=== PATIENT | female | born 1950 | race Caucasian/White ===

== ENCOUNTER 2024-05-05 11:13 | Inpatient (IN) | payer MEDICARE, OTHER, SELFPAY ==
[2024-05-05] VITALS (20 sets, daily range): BP systolic 93–144; BP diastolic 43–97; BMI 21.7
[2024-05-05] MEDS: LOW STRENGTH ASPIRIN 324 MG PO (07:10)
[2024-05-05] MEDS: NITROSTAT (SUBLINGUAL) 0.4 MG SL (07:13)
[2024-05-05 07:14] LABS: % Basophils 0.9 % (0-2); % Eosinophils 1.7 % (0-6); % Immature Granulocytes 0.2 % (0-0.5); % Lymphocytes 28.1 % (20.5-51.1); % Neutrophils 62.1 % (42.2-75.2); Absolute Basophils 0.1 10^3/uL (0-0.2); Absolute Eosinophils 0.1 10^3/uL (0-0.7); Absolute Lymphocytes 1.5 10^3/uL (1.2-3.4); Absolute Monocytes 0.4 10^3/uL (0.1-0.6); Absolute Neutrophils 3.4 10^3/uL (1.4-6.5); Hematocrit 40.1 % (37.0-47.0); Hemoglobin 13.8 g/dL (12.0-16.0); Mean Corp Hgb Conc. 34.4 g/dL (33.0-37.0); Mean Corpuscular Hgb 30.3 pg (27.0-31.0); Mean Corpuscular Volume 88.1 fL (81.0-99.0); Mean Platelet Volume 9.8 fL (7.4-10.4); Nucleated Red Blood Cells % 0 %; Platelet Count 185 10^3/uL (130-400); Red Blood Cell Count 4.55 10^6/uL (4.20-5.40); Red Cell Dist. Width 12.4 % (11.5-14.5); White Blood Cell Count 5.4 10^3/uL (4.8-10.8)
[2024-05-05 07:20] LABS: D-Dimer 2.29 ug/mlFEU (0.00-0.50)
--- NOTE | 2024-05-05 07:23 | ED.GENMED ---
History of Present Illness
General
Chief Complaint: Breathing Problem
Source: patient
Exam Limitations: none
Time Seen by Provider: 05/05/24 06:23
Nursing documentation reviewed up to this point in time: agreed with
History of Present Illness
History of Present Illness:
Patient presents to ED secondary to increasing shortness of breath with dry heaving, shortly after waking up this morning. Patient has had intermittent cough over the past 3 weeks. Patient was evaluated by her primary care physician on Monday and
was prescribed albuterol inhaler to be used as needed. Denies nausea, vomiting, or diarrhea. Denies fever or chills. Denies back pain. Denies leg pain or swelling. Denies recent surgery. Denies sick contact. Denies previous history of similar
symptoms. Denies smoking. Denies family history of heart disease.
Past History
Past History
ED Past Medical History: None
ED Past Surgical History: None
Social History
Tobacco: Non-smoker
Alcohol: Occasional
Drug: None
Personal: Partner
Living: with family
Review of Systems
Review of Systems
Allergies reviewed?: Yes
All Other Systems: ROS reviewed and negative except as documented in HPI and ROS
Constitutional: Reports no symptoms
EENT: Reports no symptoms
Respiratory: Reports cough and trouble breathing
Cardiac: Reports chest pain
ABD/GI: Reports nausea; Denies abdominal pain
: Reports no symptoms
Musculoskeletal: Reports no symptoms; Denies edema
Skin: Reports no symptoms
Neurological: Reports no symptoms
Phy Exam
Physical Exam
Physical Exam:
Physical Exam
General: mild distress, not acutely ill. afebrile
Head: nc/at. eomi
Neck: supple. no meningeal signs.
Heart: s1/s2 regular rate and rhythm, no murmur. equal radial pulses.
Lungs: no acute respiratory distress. clear bilaterally
Abdomen: normal bowel sounds. not tender.
Neuro: alert and oriented. no focal neurological deficits
Skin: no rash
Psychiatric: well kept. interactive and cooperative
Extremities: no edema. no calf tenderness.
Scores
Heart Failure Risk
Heart Failure Risk Score: Not Applicable
Course
Orders/Labs/Results
Orders:
Orders
05/05/24 06:36
Electrocardiogram (*1) Urgent
Reason for Study: Shortness of Breath
EKG- Treatment ONCE
CR Chest - 2 Views Urgent
Comment:
Reason For Exam: cough/sob
05/05/24 06:59
Complete Blood Count/With Diff Urgent
Comprehensive Metabolic Panel Urgent
D-Dimer Urgent
Magnesium Urgent
NT-proBNP Urgent
Phosphorus Urgent
Comment: ADD ON
Troponin I Urgent
05/05/24 07:04
Electrocardiogram (*1) Urgent
Reason for Study: Shortness of Breath
EKG- Treatment ONCE
Aspirin Chewable [Low Strength Aspirin] 324 mg PO NOW STA
Nitroglycerin Sublingual [Nitrostat (Sublingual)] 0.4 mg .ROUTE .STK-MED ONE
Nitroglycerin Sublingual [Nitrostat (Sublingual)] 0.4 mg SL NOW STA
05/05/24 07:37
CT Chest Pe Study Urgent
Comment:
Reason For Exam: chest tightness/sob w elevated d-dimer
05/05/24 09:25
Heparin 5,000 units .ROUTE .STK-MED ONE
05/05/24 09:27
Heparin 4,000 units IV NOW STA
05/05/24 09:57
Fentanyl Citrate/Pf [Sublimaze] 100 mcg .ROUTE .STK-MED ONE
Heparin 10,000 units .ROUTE .STK-MED ONE
Midazolam HCl [Versed] 2 mg .ROUTE .STK-MED ONE
05/05/24 09:59
Heparin 1000 Units/500 ml [Heparin] 1,000 units in 500 ml .ROUTE .STK-MED
Verapamil Injectable [Isoptin/Verapamil Injection] 5 mg .ROUTE .STK-MED ONE
05/05/24 Lunch
Cholesterol Lowering
At Your Request: Full Participation
Does patient need a safe tray?: No
Cholesterol Lowering: Sodium, 2 Gram
Heparin Sodium,Porcine/Ns/Pf [Heparin 2000 Units/1000 ml] 2,000 unit in 1,000 ml .ROUTE .STK-MED
Lidocaine HCl/Pf [Xylocaine-Mpf 1% Vial] 200 mg .ROUTE .STK-MED ONE
Nitroglycerin [Tridil] 1,500 mcg .ROUTE .STK-MED ONE
05/05/24 10:46
Admit Patient As Directed
Co-Sign Provider:
Level of Care: Inpatient admission
Assign to:: IVU
Physician / Group: Hospitalist
Diagnosis: New non-ischemic cardiomyopathy, HFrEF
Patient Condition: Fair
Reason for Hospitalization: New non-ischemic cardiomyopathy, HFrEF
Expected length of stay greater than two midnights?: Yes
ELOS- Estimated Length of Stay in days: 2
I certify the patient meets the requirements for IP care: Yes
Reason for Overnight Stay: Standard of Care
Code Status As Directed
Resuscitation Status: Full Code
Acetaminophen [Tylenol] 650 mg PO Q4HPRN PRN
Fentanyl Citrate/Pf [Sublimaze] 50 mcg IV [id number] PRN
Midazolam HCl [Versed] 1 mg IV Q5MPRN PRN
Nitroglycerin Sublingual [Nitrostat (Sublingual)] 0.4 mg SL [id number] PRN
Oxycodone/Acetaminophen [Percocet 5/325] 1 tablet PO Q4HPRN PRN
Activity As Directed
Activity Level: Out of Bed- Ad Jacki
Activity Frequency: Ad Jacki
[facility] Procedure As Directed
Cardiac Cath Procedure: cardiac catheterization
Notify MD As Directed
Notify physician if: immediately for chest pain or bleeding from access site(s)
Radial Artery Hemostasis Method As Directed
Instructions:: 3 mL out at 1 hour post placement of band
3 mL out at 1 1/2 hours post placement of band
3 mL out at 2 hours post placement of band
Off at 2 1/2 hours post placement of band
If any oozing or hemotoma occurs:: re-inflate band and call provider
Site Checks As Directed
Check access site for bleeding/hematoma: Yes
Comment: on arrival, Q15min x4, Q30min x2, Q1 hr x2, Q2 hr x2, Q4 hr or per
protocol
Vascular Checks As Directed
Location: distal to access site - pulse check
Frequency: Other
Comment: on arrival, Q15min x4, Q30min x2, Q1 hr x2, Q2 hr x2, Q4 hr or per protocol
Venous Foot Pumps As Directed
Location: Bilateral feet
Vital Signs As Directed
Frequency: Other
Additional Instructions:: on arrival, Q15min x4, Q30min x2, Q1 hr x2, Q2 hr x2, then Q4 hr or per unit
protocol
PRN Pain Medication Management As Directed
May give lesser potent ordered pain med per pt: Yes
preference::
Protocol:: Medication orders for pain may be administered in a
manner that supports deferring to patient preference
when the pt is:
- Requesting an ordered lesser potent pain medication.
Least to most potent pain medications are defined
as: acetaminophen < NSAID < tramadol < opioids
(morphine, oxycodone, hydromorphone).
- Requesting a lesser dose of the same medication IF
ORDERED.
- Requesting a less intrusive route of administration
if both routes are prescribed by the provider (PO <
IV).
05/05/24 10:47
DX Deep Vein Thrombosis Video Routine
05/05/24 10:48
Furosemide [Lasix] 40 mg IV ONCE ONE
05/05/24 11:00
0.9% Sodium Chloride 1000 ml [Nss] 1,000 ml IV PER PROTOCOL
Infusion rate in mL/kg/hr:: 1.5
Infusion rate in mL/hr:: 93
Duration of infusion (hours):: 3
Metoprolol Xl [Toprol Xl] 12.5 mg PO DAILY
05/05/24 11:07
Add On- LAB Routine
Tests Added?: Phosphorus
05/05/24 18:00
Atorvastatin [Lipitor] 40 mg PO QPM
Enoxaparin Sodium [Lovenox] 40 mg SC QPM
05/05/24 20:00
Sacubitril 24/Valsartan 26 [Entresto 24 mg/26 mg] 1 tab PO BID
05/06/24 06:00
Echo 2D MMode Color/Doppler Routine
Reason for Study: New non-ischemic cardiomyopathy.
Basic Metabolic Panel IN AM
Cardiovascular Evaluation IN AM
Complete Blood Count/No Diff IN AM
05/06/24 08:00
Dapagliflozin [Farxiga] 10 mg PO DAILY
Abnormal Lab Results
05/05/24
06:59
D-Dimer 2.29 H ug/mlFEU
(0.00-0.50)
BUN 26 H mg/dl
(7-17)
Glucose 101 H mg/dl
(70-99)
AST 46 H U/L
(14-36)
ALT 40 H U/L
(0-35)
Alkaline Phosphatase 135 H U/L
(38-126)
Troponin I 0.035 H* ng/ml
05/05/24 06:59
05/05/24 06:59
Vital Signs
Initial and Last Documented VS:
Initial Vital Signs
Temp Pulse BP Pulse Ox
97.7 F 86 144/70 100
05/05/24 06:28 05/05/24 06:28 05/05/24 06:28 05/05/24 06:28
Last Documented Vital Signs
Temp Pulse Resp BP Pulse Ox
97.7 F 66 20 143/72 98
05/05/24 11:51 05/05/24 11:45 05/05/24 11:51 05/05/24 11:45 05/05/24 11:51
MDM/Problems Addressed
MDM/Problems Addressed:
Due to recent travel and elevated d-dimer, decision made to obtain CTA PE study.
CTA chest: no PE, but possible kidney mass noted. Will inform patient for outpatient evaluation with PMD, as outpatient. A copy of report provided to the patient and her spouse.
Discussed with [facility] attending, Dr. Keys, in light of patient's presentation along with new left bundle branch block noted on EKG.
Patient evaluated in ED by Dr. Keys. Decision made to proceed to [facility] for diagnostic catheterization. Request heparin bolus only.
Patient transported to [facility] in stable condition.
Critical care statement: A total of 40 minutes of critical care time was provided for this patient. This includes management of unstable vital signs, evaluation of the patient at bedside, reviewing the patient's pertinent medical records, discussion
with consultants, review of old EKGs and review of pertinent medical records. This time with separate from time utilized to perform the aforementioned documented procedures
*EKG
Interpreted by ED Provider?: Yes
EKG Intrepretation Date: 05/05/24
Heart Rate: 78
Rate: normal
Rhythm: sinus
QRS Pattern: left bundle branch block
*Critical Care Note
Total Time (30-74mins, 75-104mins- exclusive of procedures): 40 min
ED Attending Note
-
Portions of this chart may have been created with voice recognition software.� Occasional wrong word or��sound alike� substitutions may have occurred due to the inherent limitations of voice recognition software.
Discharge Plan
Departure
Patient Disposition: [facility]
Date of Disposition: 05/05/24
Time of Disposition: 09:29
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
Presentation/result/management discussed w/ accepting MD/DO:
Discharge Problem:
Chest pain, Abnormal ECG
Interventions
Interventions:
*Risk Screen - Suicide Last Done: 05/05/24 06:20
*Neglect/Abuse Screening Last Done: 05/05/24 06:20
ED- Fall Risk Assessment Last Done: 05/05/24 07:02
*ED COVID-19 Vaccine History Last Done: 05/05/24 07:02
*Nursing Disposition Last Done: 05/05/24 10:15
ED- Cardiac Assessment Last Done: 05/05/24 07:18
ED- Pulmonary Assessment Last Done: 05/05/24 07:18
Discharge Date and Time
Discharge Date/Time: 05/05/24 10:16
[2024-05-05 07:35] LABS: NT-proBNP 2340 pg/ml; Troponin I 0.035 ng/ml
[2024-05-05 07:44] LABS: ALT (SGPT) 40 U/L (0-35); AST (SGOT) 46 U/L (14-36); Albumin 4.4 g/dl (3.5-5.0); Alkaline Phosphatase 135 U/L (38-126); Blood Urea Nitrogen 26 mg/dl (7-17); Calcium 9.9 mg/dl (8.4-10.2); Carbon Dioxide 29 mmol/L (22-30); Chloride 103 mmol/L (98-107); Estimated Creatinine Clearance 69 ml/min; Glucose 101 mg/dl (70-99); Potassium 4.3 mmol/L (3.5-5.1); Sodium 141 mmol/L (135-145); Total Bilirubin 0.5 mg/dl (0.2-1.3); Total Protein 7.5 g/dl (6.3-8.2); eGFR > 60.00
[2024-05-05] MEDS: HEPARIN 4000 UNITS IV (09:30)
--- NOTE | 2024-05-05 09:51 | HPS.HSE ---
Addendum entered and electronically signed by Charly Keys DO 05/05/24 11:09:
Cardiac catheterization shows no occlusive coronary artery disease (mild tapering of the left main, 30% proximal LAD), moderately reduced systolic function (LVEF = 35-40%) and moderately elevated filling pressures (LVEDP = 20 mmHg).
Furosemide 40 mg IV x 1 ordered.
Start guideline directed medical therapy with metoprolol, sacubitril/valsartan and dapagliflozin.
Echocardiogram ordered and pending.
Check fasting lipid profile, hemoglobin A1c.
Start atorvastatin 40 mg given presence of coronary atherosclerosis, though currently nonocclusive.
CT abdomen/pelvis ordered to evaluate kidney abnormality seen on CT PE.
Original Note:
Family Physician
-
Family Physician: Evelyn Brandt
Chief Complaint
-
Shortness in breath, chest pressure.
History of Present Illness
74 y/o female without significant past medical history presents to [facility] ER with shortness in breath and chest pressure. Symptoms began approximately 3 weeks ago after returning from a 3 week vacation. She describes increased work of
breathing with exertion (climbing stairs/attic ladder) and increased fatigue. She also describes shortness in breath awakening her from sleep, relieved by sitting up, consistent with PND. This has been associated with chest pressure. She reports
post nasal drip and felt that her symptoms were likely due to sinus infection as she has had this in the past. She saw her PCP who prescribed an albuterol inhaler, which has not been effective. She had an episode of PND this morning around 3AM,
compounded by chest pressure, nausea and dry heaving. She felt 'shaky' afterwards, prompting her presentation to the ER.
In the ER, EKG shows a LBBB. Prior EKG from 02/08/2023 is normal. She denies fevers, chills, palpitations. She admits that she felt presyncopal after her episode of dry heaves earlier this morning. She is afebrile and vital signs have been
stable. CXR showed mild pulmonary edema. D-Dimer was elevated at 2.29, prompting a CTPE, which was negative for PE, but does show small bilateral pleural effusions, mild dilation of the ascending aorta, mild emphysema and a lobular configuration
of the left kidney not fully defined, concerning for tumor. Troponin is mildly elevated at 0.035 and she has a mild transaminitis.
Given the non-specific findings, chest pressure and new LBBB on EKG, cardiology was consulted for further evaluation.
DATA:
CTPE, 05/05/2024:
IMPRESSION:
1). Imaging obtained into the upper abdomen demonstrates lobular configuration to the lateral aspect of the interpolar portion of the left kidney. While this may be a renal dromedary hump is worrisome for 4 cm left renal tumor and follow-up imaging
with CT of the abdomen would be useful for further evaluation.
2). There is no pulmonary embolism
3). 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
4). Small bilateral pleural effusions
5). Mild emphysema
Medical History
Past Medical History
Past Medical History: Reports None
Past Surgical History: Reports None
Social History
Tobacco: Non-smoker
Alcohol: Daily (4-5 drinks per week (wine with dinner).)
Drug: None
Personal: (, recently remarried (within the past year).)
Living: With Family
Family History
Family History: Not pertinent
Allergies / Home Medications
Allergies reflects when Allergies were last updated in [facility].
Home Medications with original date entered in [facility]
Allergy/Medication List:
Home Medications:
No home medications.
Allergies:
Prednisone
Review of Systems
-
History Source: Patient and Family
A 12 point ROS was completed and negative except as noted: Yes
Constitutional: Reports See HPI
EENT: Reports See HPI (Post nasal drip.)
Respiratory: Reports Cough and Trouble Breathing
Cardiac: Reports Chest Pain (Chest pressure.)
Abdomen/GI: Reports Nausea and Vomiting (Dry heaves.)
: Reports No Symptoms
Musculoskeletal: Reports No Symptoms
Skin: Reports No Symptoms
Neurological: Reports No Symptoms
Endocrine: Reports No Symptoms
Hematologic/Lymphatic: Reports No Symptoms
Psych: Reports No Symptoms
Physical Exam
Vital Signs
Vital Signs
Temp Pulse Resp BP Pulse Ox
36.5 C 75 12 127/54 97
05/05/24 06:28 05/05/24 09:00 05/05/24 09:00 05/05/24 09:00 05/05/24 09:00
Physical Exam
General: Well Developed, Well Nourished, No Apparent Distress, Comfortable, Conversant and Good Appetite
HEENT: NormoCephalic, Anicteric, Moist mucous membranes, Atraumatic, Good Dentition, PERRLA, [place] Conjunctivae, No Ptosis, Nose Appears Normal, Ears Appear Normal and Neck Nontender
Respiratory: Clear and Non Labored Respirations
Cardiac: S1/S2, Regular Rhythm and Gallop (Paradoxically split S2.)
Breast: Deferred by me
GI: Soft, Non Tender, Non Distended and Normal Bowel Sounds
Rectal: Deferred by Provider
Genito-urinary: Deferred by me
Musculoskeletal: No Clubbing, No Cyanosis and No Edema
Skin: Warm and Dry
Neuro: AO x 3, No Motor Deficits and Nonfocal/grossly intact
Hematologic/Lymphatic: No Lymphadenopathy
Psych: Calm and Intact Judgment/Insight
Laboratory Results
-
05/05/24 06:59
05/05/24 06:59
Laboratory Results
Total Bilirubin 0.5 mg/dl (0.2-1.3) 05/05/24 06:59
AST 46 U/L (14-36) H 05/05/24 06:59
ALT 40 U/L (0-35) H 05/05/24 06:59
Alkaline Phosphatase 135 U/L (38-126) H 05/05/24 06:59
Troponin I 0.035 ng/ml H* 05/05/24 06:59
Data Reviewed
-
Diagnostic Radiology: Image Personally Visualized and interpreted, Report Reviewed by me and Discussed with Physician
CT Scan: Image Personally Visualized and interpreted, Report Reviewed by me and Discussed with Physician
Medical Tests (Nuc Med, Echo, EKG etc): Image Personally Visualized and interpreted, Report Reviewed by me, Discussed with Physician, Discussed with Patient and Discussed with Family
Lab Data: Labs Reviewed by me, Discussed with Physician, Discussed with Patient and Discussed with Family
Old Records: Reviewed
Impression/Plan
-
Impression/Plan: 74 y/o female without significant past medical history presenting with 3 weeks of post nasal drip, progressive CRUZ and fatigue, paroxysmal nocturnal dyspnea associated with chest pressure and a new LBBB with a mildly elevated
troponin.
#CRUZ/PND/LBBB/abnormal troponin
-Relatively acute.
-The presence of LBBB makes it difficult to determine if the patient meets absolute STEMI criteria.
-She is currently chest pain free.
-Given her symptom progression with the episode this morning, pulmonary edema on CXR and LBBB on EKG, it is reasonable to pursue a cardiac catheterization today to clarify coronary anatomy and filling pressures.
-DDx includes ACS, Takotsubo, NICMO/post viral myocarditis.
-The procedure was explained in detail to the patient and her .
-ASA 324 mg and Heparin 4000 units was given in the ER.
-Ticagrelor held until we have defined her anatomy.
-Fasting lipid panel in the AM.
-Check HbA1c.
-Trend troponin to peak.
-Consent signed and on the chart.
-Further instructions will follow.
#Left renal abnormality
-New diagnosis.
-Concern for left sided renal malignancy, though imaging could not be certain.
-CT abdomen pelvis after her cardiac catheterization.
--- NOTE | 2024-05-05 10:56 | ITS.CL.CATH ---
[facility] - Catheterization
Cardiac Catheterization
Procedure Report:
CARDIAC CATHETERIZATION REPORT
Date of Procedure: 05/05/2024
Referring: Rodney Vega M.D./Cliff Best M.D.
INDICATION: New left bundle branch block, new symptoms of heart failure.
PROCEDURE:
1. Left heart catheterization.
2. Coronary angiography.
3. Left ventriculography.
ACCESS:
6 Haitian right radial artery.
CATHETERS:
1. 5 Haitian JR4.
2. 5 Haitian JL 3.5.
3. 5 Haitian angled pigtail.
HEMODYNAMIC DATA
Weight (kg): 62.0
AO (s/d/x, mmHg): 119/58/76
LV (s/x mmHg): 121/20
LEFT VENTRICULOGRAPHY: Performed in an WIGGINS projection. Moderately dilated left ventricle. There is akinesis of the mid to distal inferior wall. There is global hypokinesis in the remainder of the myocardium with moderately reduced systolic
function. Left ventricular ejection fraction estimated at 35-40%. There is mild mitral regurgitation. There is no aortic valve insufficiency. The aortic root appears normal with at least mild dilation of the visualized ascending aorta.
CORONARY ANGIOGRAPHY
Dominance: Right.
Left Main: Normal size, bifurcating vessel. There is proximal vessel tapering without pressure dampening and adequate splash back.
LAD: Normal size vessel giving rise to 1 significant diagonal. There is a 30% lesion in the proximal vessel.
Ramus: Congenitally absent.
Circumflex: Normal size, nondominant vessel that is essentially a single obtuse marginal supplying the lateral wall. There is no coronary artery disease.
RCA: Enormous, dominant vessel with a large posterolateral arcade that supplies the entire inferior and inferior lateral wall. There is no coronary artery disease.
INTERVENTION(S)
None.
Closure Device: Vascular band.
Radiation (mGy): 349.29
DAP (cm2.Gy): 23.8115
Fluoroscopy time (minutes): 5.2
Sedation time (minutes): 22
CONCLUSIONS
1. Right dominant circulation with mild proximal left main narrowing and a 30% lesion in the proximal LAD.
2. Akinesis of the mid to distal inferior wall with global hypokinesis throughout the remainder of the left ventricle with moderately reduced systolic function, LVEF estimated at 35-40%.
3. Moderately elevated filling pressures (LVEDP = 20 mmHg at 62.0 kg).
4. Tortuous right radial/brachial arteries requiring a hydrophilic wire for catheter advancement.
RECOMMENDATIONS:
1. Expectant management after cardiac catheterization via right radial approach.
2. Limited weight bearing on the right wrist for one week.
3. Furosemide 40 mg IV x 1.
4. Initiation of guideline directed medical therapy as hemodynamics will tolerate.
5. Primary prevention with high-dose, high potency statin.
6. Echocardiogram to more fully evaluate myocardial structure and function as well as valve function.
7. Referral to cardiac rehab.
Copy to: Rodney Vega M.D., Evelyn Brandt D.O.
Charly Keys DO, FACC, FACP
[2024-05-05 11:39] LABS: Phosphorus 3.9 mg/dl (2.5-4.5)
--- NOTE | 2024-05-05 11:52 | HPS.HSE ---
Family Physician
-
Family Physician: Evelyn Brandt
Chief Complaint
-
chest pain
History of Present Illness
74-year-old female with no significant past medical history is presenting from home with complaints of chest pressure and pain. Patient recently traveled to [place] and returned 2 weeks ago. Patient under increasing amount of stress due to social
situation. Did state her symptomology correlates with the timing of stress. Had intermittent cough which has resolved at this point. No fevers or chills. No lightheaded dizziness. Currently without chest pain or palpitations. Complained of
shortness of breath which did wake her up from sleep which was relieved by sitting up. Denies any lower extremity edema. States usually her blood pressure runs on the lower side. Currently seen after cardiac catheterization and without any
specific complaints. In the ER patient was found to have elevated D-dimer underwent CT PE which was found to be negative. CT chest did show abnormality on the renal lesion. EKG was abnormal which showed a left bundle branch block and patient
underwent cardiac catheterization by Dr. Keys. Cardiac catheterization with nonobstructive CAD. Ejection fraction of 35%.
Medical History
Past Medical History
Past Medical History: Reports Other
Past Surgical History: Reports Other
Social History
Alcohol: Daily (glass of wine with dinner )
Drug: None
Personal: (recently )
Living: With Family
Family History
Family History: Not pertinent
Allergies / Home Medications
Allergies reflects when Allergies were last updated in [facility].
Home Medications with original date entered in [facility]
Allergy/Medication List:
Allergies
Allergy/AdvReac Type Severity Reaction Status Date / Time
prednisone Allergy Unknown Verified 05/05/24 06:20
Home Medications
No Meds [No Current Medications] 05/05/24
Review of Systems
-
History Source: Patient
A 12 point ROS was completed and negative except as noted: Yes
Physical Exam
Vital Signs
Vital Signs
Temp Pulse Resp BP Pulse Ox
97.7 F 66 20 143/72 98
05/05/24 11:51 05/05/24 11:45 05/05/24 11:51 05/05/24 11:45 05/05/24 11:51
Physical Exam
General: Well Developed, Well Nourished, No Apparent Distress, Comfortable and Conversant
HEENT: NormoCephalic, Moist mucous membranes, Atraumatic, Nose Appears Normal, Ears Appear Normal and Hearing Impaired
Respiratory: Clear
Cardiac: S1/S2 and Regular Rhythm; No Murmur or Rub
GI: Soft, Non Tender, Non Distended and Normal Bowel Sounds; No Organomegaly
Rectal: Deferred by Provider
Musculoskeletal: No Clubbing, No Cyanosis and No Edema
Skin: Warm; No Rash
Neuro: Awake, Alert, Oriented, AO x 3, No Motor Deficits and Nonfocal/grossly intact
Psych: Calm
Laboratory Results
-
05/05/24 06:59
05/05/24 06:59
Laboratory Results
Total Bilirubin 0.5 mg/dl (0.2-1.3) 05/05/24 06:59
AST 46 U/L (14-36) H 05/05/24 06:59
ALT 40 U/L (0-35) H 05/05/24 06:59
Alkaline Phosphatase 135 U/L (38-126) H 05/05/24 06:59
Troponin I 0.035 ng/ml H* 05/05/24 06:59
Impression/Plan
-
#Nonobstructive CAD
#Nonischemic cardiomyopathy
#Acute heart failure exacerbation
CT chest upon admission was negative for pulmonary embolism.
EKG with left bundle branch block
Cardiac catheterization with nonobstructive coronary artery disease. Left ventriculogram with EF of 35-40%
Plan to start patient goal-directed medical therapy with Entresto, Farxiga metoprolol and Lipitor
Check A1c in the morning
Echocardiogram in the morning
Monitor blood pressure closely
CBC without any eosinophilia. Per cardiology possibility of myocarditis secondary to suspected viral infection in the recent past.
Cardiology following
#Mild fusiform aneurysm dilatation of the ascending aorta
Cardiology following
#Left renal lesion
CT abdomen pelvis with contrast ordered by cardiology
Alcohol usage
Low likelihood of withdrawal
Mild emphysema noted on CAT scan
Outpatient pulmonary follow-up
DVT prophylaxis with Lovenox
Discussed with patient spouse at bedside
Discussed with Dr. Keys
I spent a total of 78 minutes with the patient or on the floor. More than 50% of this time involved counseling and coordination of care.
[2024-05-05] MEDS: TOPROL XL 12.5 MG PO (13:29)
[2024-05-05] MEDS: LASIX 40 MG IV (13:30)
[2024-05-05] MEDS: LIPITOR 40 MG PO (17:54)
[2024-05-05] MEDS: LOVENOX 40 MG SC (17:55)
[2024-05-05] MEDS: ENTRESTO 24 MG/26 MG 1 TAB PO (20:03)
--- NOTE | 2024-05-05 22:00 | PTCARENOTE ---
Pt received at change of shift. SR on tele with BBB and PVCs, HR 60s, BP 100/49. R radial cath site c/d/i with no complications noted. Education on activity restrictions provided and pt demonstrates understanding. Ambulating independently in room
without difficulty. Plan of care discussed. Can make needs known. Call hernandez within reach.
[2024-05-06 04:17] VITALS: BP 113/66
[2024-05-06 04:26] VITALS: BMI 20.6
[2024-05-06 04:36] LABS: Hematocrit 41.4 % (37.0-47.0); Hemoglobin 14.3 g/dL (12.0-16.0); Mean Corp Hgb Conc. 34.5 g/dL (33.0-37.0); Mean Corpuscular Hgb 30.2 pg (27.0-31.0); Mean Corpuscular Volume 87.5 fL (81.0-99.0); Mean Platelet Volume 9.8 fL (7.4-10.4); Platelet Count 186 10^3/uL (130-400); Red Blood Cell Count 4.73 10^6/uL (4.20-5.40); Red Cell Dist. Width 12.2 % (11.5-14.5); White Blood Cell Count 5.2 10^3/uL (4.8-10.8)
[2024-05-06 05:15] LABS: Blood Urea Nitrogen 27 mg/dl (7-17); Calcium 9.7 mg/dl (8.4-10.2); Carbon Dioxide 26 mmol/L (22-30); Chloride 99 mmol/L (98-107); Estimated Creatinine Clearance 59 ml/min; Glucose 113 mg/dl (70-99); HDL Cholesterol 70 mg/dl; LDL Cholesterol, Calculated 157 mg/dl; Sodium 138 mmol/L (135-145); Total Cholesterol 251 mg/dl (50-199); Triglyceride 120 mg/dl (10-149); Very Low Density Lipoprotein 24 mg/dl (0-30); eGFR > 60.00
[2024-05-06 07:48] VITALS: BP 100/65
--- NOTE | 2024-05-06 08:00 | W.PN.CD ---
Today's Communication / Plan
-
continue current Rx
Furosemide 20mg po today
Ambulate
ECHO
Impression / Plan
-
CHF
- Nonischemic CM
- Clinically improving
- Ambulate today
- ECHO
- BP soft. May not tolerate as much GDMT as we would like. Pt placed on expensive meds - need to check cost otherwise compliance will be impossible.
Possible d/c tomorrow if improvment continues
Physical Exam
Vital Signs/Labs
Vital Signs
Temp Pulse Resp BP Pulse Ox
98.1 F 72 18 113/66 98
05/06/24 04:17 05/06/24 04:17 05/06/24 04:17 05/06/24 04:17 05/06/24 04:17
05/05/24 05/06/24 05/07/24
06:59 06:59 06:59
Actual Weight 136 lb 10.986 oz 129 lb 10.109 oz
05/06/24 04:23
05/06/24 04:23
Magnesium 2.0 mg/dl (1.6-2.3) 05/05/24 06:59
Triglycerides 120 mg/dl (10-149) 05/06/24 04:23
LDL Cholesterol, Calc 157 mg/dl 05/06/24 04:23
VLDL Cholesterol, Calc 24 mg/dl (0-30) 05/06/24 04:23
HDL Cholesterol 70 mg/dl 05/06/24 04:23
05/05/24
06:59
Qoe-S-Dibopyabevt Pept 2340
LAB Results
05/05/24
06:59
Troponin I 0.035 H*
Physical Exam
Constitutional: No acute distress
EENT: Anicteric
Cardiovascular: Rhythm & rate is regular and Murmur/rub/gallop absent
Respiratory: Respiratory effort normal and Lungs clear to auscul.
GI: Soft and Non tender
Neuro/Psych: AO x 3 and Motor deficits absent
Data Reviewed
-
Date of Service: May 06, 2024
[2024-05-06] MEDS: FARXIGA 10 MG PO (08:57)
[2024-05-06] MEDS: TOPROL XL 12.5 MG PO (08:57)
[2024-05-06] MEDS: ENTRESTO 24 MG/26 MG 1 TAB PO (08:57)
[2024-05-06 09:30] LABS: Glycohemoglobin (HgbA1c) 5.5 % (4.0-5.6)
--- NOTE | 2024-05-06 10:50 | W.PN.HOSP.TC ---
Addendum entered and electronically signed by Charly Denis DO 05/06/24 16:20:
CDI: Elevated troponin, likely type II demand ischemia as she did present with chest pain
Original Note:
Today's Communication/Plan
-
Plan to transition to oral diuretic regimen
Convert atorvastatin to rosuvastatin per patient preference
Follow-up TTE
Assessment / Plan
Assessment / Plan
#Acute HFrEF
#Nonischemic cardiomyopathy
-Unclear etiology at this time though differentials include viral myocarditis, infiltrative process, toxic (occult)
-Current GDMT includes metoprolol, SGLT2i, Entresto with stable hemodynamics and renal function
-Remains on IV Lasix with net negative I's/O's and weight, symptomatically improved
-TTE ordered, results pending
-Warm and dry, on room air
Plan
-Plan to transition to oral diuretic regimen within 24-hour
-Follow-up TTE, assess for nonterritorial WMA consistent with myocarditis
-Continue with GDMT as currently prescribed, consider MRA
-Trend BMP, I's/O's, weights
#Nonobstructive coronary artery disease
-Was started on high intensity atorvastatin for risk reduction
-Patient currently asking for water-soluble statin if possible
-Will speak with cardiology about transitioning to rosuvastatin 20 mg
#Left renal lesion
-CT A/P with contrast today showed no contrast-enhancement, suspicious for proteinaceous cyst
-Plan for outpatient follow-up with PCP
#Benign rim calcified 16 mm mass at the anterior aspect of the proximal body of the pancreas
-Asymptomatic, unclear if she has previous history of pancreatitis
-Should have outpatient follow-up with possible repeat imaging in 6 months
#splenic artery aneurysm
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
-No intervention required at this
DVT prophylaxis: Subcutaneous Lovenox
Diet: Low-cholesterol
CODE STATUS: Full code
Anticipated Discharge: Within 24 hours
Subjective/Interval History
-
Date of Service: May 06, 2024
Seen and examined at the bedside. No acute events overnight. No acute events per telemetry. AFVSS.
She states she feels well. Questions if she can be switched to water-soluble statin as she has ready of fat-soluble statins association with cancer and Parkinson's disease (?)
Denies chest pain, dyspnea, palpitations, GI issues, urinary issues, lightheadedness, paresthesias or weakness, bleeding or bruising
Objective Data
-
Labs:
Laboratory Results
05/06/24
04:23
WBC 5.2
Hgb 14.3
Hct 41.4
Plt Count 186
Sodium 138
Potassium 4.0
Chloride 99
Carbon Dioxide 26
BUN 27 H
Creatinine 0.8
Glucose 113 H
Calcium 9.7
Vital Signs:
Vital Signs
Temp Pulse Resp BP Pulse Ox
98.1 F 80 18 100/65 98
05/06/24 04:17 05/06/24 08:57 05/06/24 04:17 05/06/24 08:57 05/06/24 04:17
I&O
05/05/24 05/06/24 05/07/24
06:59 06:59 06:59
Intake Total 279 / 279
Balance 279 / 279
Review of Systems
-
History Source: Patient
All other systems: Reviewed and negative
Physical Exam
-
General: Well Nourished, No Apparent Distress and Comfortable
HEENT: Normocephalic and Moist Mucous Membranes
Respiratory: Clear to Auscultation and Non Labored Respirations; Negative Wheezes, Rales or Rhonchi
Cardiac: Regular Rhythm and S1/S2; Negative Murmur, Rub, JVD or Gallop
GI: Soft, Nontender, Nondistended and Normal Bowel Sounds
Musculoskeletal: No Clubbing, No Cyanosis, No Edema and Normal Gait & Station
Skin: Warm and Dry; Negative Rash
Neuro: AO x 3, Nonfocal/Grossly Intact and Central Nerve's Intact
Psych: Calm
Data Reviewed
-
Labs: Labs Reviewed by me and Discussed with Patient
[2024-05-06 11:24] VITALS: BP 113/62
[2024-05-06] MEDS: LASIX 20 MG PO (11:30)
--- NOTE | 2024-05-06 11:57 | CM ---
Reviewed chart. Met with Mrs. Morales and her significant other to review discharge plans. She states prior to admission she resides with her significant other in a two story home with two steps to enter. She states she has a full flight of
steps to get to bedroom. She states she has a full bathroom on each floor. Prior to admission she was independent with ambulation and adls. She states she does not have any DME in the home. She states she has a prescription plan with [facility]
and uses [facility]. Telephone call to [facility] to check co-pay for Farxiga 10 mg and Entresto /. Her Farxiga first month Farxiga 850.34, then it would be $407.99 a month after. Entresto 24/ would be $259.61 a month. Reviewed co-pays
with her. She feels they are cost prohibited. Updated attending and Cardiology. She will look at her prescription plan coverage during the open enrollment. Medical work-up in progress. The discharge plan is to return home with her significant
other when medically stable.
--- NOTE | 2024-05-06 14:40 | PN.CDI ---
CDI
- -
CDI:
Physician Documentation Request
Admit Date: 05/05/24 11:13
Dear Doctor Adeel,
Patient presented to ED with complaint of intermittent cough. Taken to calibration laboratory technician and determined to have acute systolic CHF., nonischemic cardiomyopathy.
05/05 trop 0.035
Could you please provide a diagnosis that supports the above lab abnormalities and additional evaluation/ monitoring and/or treatment rendered:
Nonischemic myocardial injury
Type II AR demand ischemia
Other
Use of terms such as suspected, likely, concern for, or probable (associated with a specific diagnosis that is being evaluated, monitored, or treated as if it exists) are acceptable and can be coded in the inpatient setting, when documented at the
time of discharge.
Thank you,
Angela López RN, BSN
CDI Specialist
tiger text
Please use your independent medical judgment in providing your response.
[2024-05-06 16:08] VITALS: BP 111/72
[2024-05-06] MEDS: CRESTOR 20 MG PO (17:34)
[2024-05-06] MEDS: LOVENOX SC (17:35)
[2024-05-06 19:43] VITALS: BP 86/43
--- NOTE | 2024-05-06 20:14 | W.PN.UPDATE ---
Update Note
Progress Note Update
Patient is hypotensive with bp 86/43, hr 79 asymptomatic, will hold valsartan for tonight and give one time dose midodrine 5mg.
[2024-05-06] MEDS: ProAmatine 5 MG PO (20:52)
[2024-05-06 22:18] VITALS: BP 104/69
--- NOTE | 2024-05-07 02:02 | PTCARENOTE ---
Pt remains SR on tele with BBB and frequent PVCs, HR 60s-70s. BP 86/43, pt denies lightheadedness, CP, and SOB. Katie Hdye NP notified. PM dose of Valsartan held and one time dose of Midodrine given per orders. Repeat BP 104/69. Plan of
care discussed with pt and questions answered. Call hernandez within reach.
[2024-05-07 04:15] VITALS: BP 115/73
[2024-05-07 04:22] VITALS: BMI 20.5
[2024-05-07 05:03] LABS: % Basophils 0.7 % (0-2); % Immature Granulocytes 0.2 % (0-0.5); % Lymphocytes 38.2 % (20.5-51.1); % Monocytes 10.5 % (1.7-9.3); % Neutrophils 48.4 % (42.2-75.2); Absolute Eosinophils 0.1 10^3/uL (0-0.7); Absolute Lymphocytes 2.3 10^3/uL (1.2-3.4); Absolute Monocytes 0.6 10^3/uL (0.1-0.6); Absolute Neutrophils 2.9 10^3/uL (1.4-6.5); Hemoglobin 15.5 g/dL (12.0-16.0); Mean Corpuscular Hgb 31.6 pg (27.0-31.0); Mean Corpuscular Volume 87.6 fL (81.0-99.0); Mean Platelet Volume 10.3 fL (7.4-10.4); Nucleated Red Blood Cells % 0 %; Platelet Count 209 10^3/uL (130-400); Red Blood Cell Count 4.91 10^6/uL (4.20-5.40); Red Cell Dist. Width 12.1 % (11.5-14.5); White Blood Cell Count 5.9 10^3/uL (4.8-10.8)
[2024-05-07 05:27] LABS: Blood Urea Nitrogen 37 mg/dl (7-17); Calcium 9.8 mg/dl (8.4-10.2); Carbon Dioxide 23 mmol/L (22-30); Chloride 101 mmol/L (98-107); Estimated Creatinine Clearance 52 ml/min; Glucose 102 mg/dl (70-99); Magnesium 2.2 mg/dl (1.6-2.3); Potassium 4.3 mmol/L (3.5-5.1); Sodium 138 mmol/L (135-145); eGFR > 60.00
[2024-05-07 07:24] VITALS: BMI 20.5
[2024-05-07 07:36] VITALS: BP 99/51
--- NOTE | 2024-05-07 08:04 | W.PN.CD ---
Today's Communication / Plan
-
meds adjusted
OK from our standpoint for home today
I'll ask JL to arrange cardiac followup
Impression / Plan
-
CHF
- Nonischemic CM. EF 32%
- Clinically improving- wt down 8 lbs vs admission
- BP soft. Will not tolerate as much GDMT as we would like. Unaffordable meds (Farxiga, entresto) have been stopped. She won't tolerate valsartan bid.
RECOMMENDED HOME CARDIAC MEDS
Furosemide 20mg daily
KCL 10mEq daily
Metoprolol XL 25qd in AM
Valsartan 40mg in PM
Spironolactone 12.5mg daily
Rosuvastatin 20mg qd
ASA qd
BMP 1 wk
Cardiac followup with Dr Keys
Physical Exam
Vital Signs/Labs
Vital Signs
Temp Pulse Resp BP Pulse Ox
98.0 F 84 16 99/51 98
05/07/24 07:34 05/07/24 07:36 05/07/24 07:34 05/07/24 07:36 05/07/24 07:34
05/06/24 05/07/24 05/08/24
06:59 06:59 06:59
Actual Weight 129 lb 10.109 oz 128 lb 11.999 oz
05/07/24 04:22
05/07/24 04:22
Magnesium 2.2 mg/dl (1.6-2.3) 05/07/24 04:22
Triglycerides 120 mg/dl (10-149) 05/06/24 04:23
LDL Cholesterol, Calc 157 mg/dl 05/06/24 04:23
VLDL Cholesterol, Calc 24 mg/dl (0-30) 05/06/24 04:23
HDL Cholesterol 70 mg/dl 05/06/24 04:23
05/05/24
06:59
Qcf-P-Ymzekqpkikl Pept 2340
LAB Results
05/05/24
06:59
Troponin I 0.035 H*
Physical Exam
Constitutional: No acute distress
EENT: Anicteric
Cardiovascular: Rhythm & rate is regular, Systolic murmur present (1/6 aortic outflow murmur) and S1S2 is normal
Respiratory: Respiratory effort normal, Lungs clear to auscul., Wheeze Absent and Crackles Absent
GI: Soft and Non tender
Neuro/Psych: AO x 3 and Motor deficits absent
Data Reviewed
-
Date of Service: May 07, 2024
[2024-05-07 08:23] VITALS: BP 97/68
[2024-05-07] MEDS: LASIX PO (08:40)
--- NOTE | 2024-05-07 08:58 | W.PN.HOSP.TC ---
Today's Communication/Plan
-
Discharge home
Assessment / Plan
Assessment / Plan
#Acute HFrEF
#Nonischemic cardiomyopathy
-Unclear etiology at this time though differentials include viral myocarditis, infiltrative process, toxic (occult)
-Current GDMT includes metoprolol, SGLT2i, Entresto with stable hemodynamics and renal function
-Remains on IV Lasix with net negative I's/O's and weight, symptomatically improved
-TTE ordered, seems consistent with myocarditis and nonterritorial WMA
-Warm and dry, on room air
-GDMT: Beta-sindy, valsartan
-Loop diuretic: Lasix 20 mg QD
#Nonobstructive coronary artery disease
-Was started on high intensity atorvastatin for risk reduction
-Patient currently asking for water-soluble statin if possible
-Will speak with cardiology about transitioning to rosuvastatin 20 mg
#Left renal lesion
-CT A/P with contrast today showed no contrast-enhancement, suspicious for proteinaceous cyst
-Plan for outpatient follow-up with PCP
#Benign rim calcified 16 mm mass at the anterior aspect of the proximal body of the pancreas
-Asymptomatic, unclear if she has previous history of pancreatitis
-Should have outpatient follow-up with possible repeat imaging in 6 months
#splenic artery aneurysm
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
-No intervention required at this
DVT prophylaxis: Subcutaneous Lovenox
Diet: Low-cholesterol
CODE STATUS: Full code
Anticipated Discharge: Today
Subjective/Interval History
-
Date of Service: May 07, 2024
Seen and examined bedside. No acute event overnight. No acute events on telemetry. AFVSS
States she feels well and is ready to go home
Denies chest pain, dyspnea, fevers or chills, GI issues, urinary issues, bleeding or bruising, paresthesias or weakness
Objective Data
-
Labs:
Laboratory Results
05/07/24
04:22
WBC 5.9
Hgb 15.5
Hct 43.0
Plt Count 209
Sodium 138
Potassium 4.3
Chloride 101
Carbon Dioxide 23
BUN 37 H
Creatinine 0.9
Glucose 102 H
Calcium 9.8
Vital Signs:
Vital Signs
Temp Pulse Resp BP Pulse Ox
98.0 F 84 16 99/51 98
05/07/24 07:34 05/07/24 07:36 05/07/24 07:34 05/07/24 07:36 05/07/24 07:34
I&O
05/06/24 05/07/24 05/08/24
06:59 06:59 06:59
Intake Total 279 / 279
Balance 279 / 279
Review of Systems
-
History Source: Patient
All other systems: Reviewed and negative
Physical Exam
-
General: Well Nourished, No Apparent Distress and Comfortable
HEENT: Normocephalic, Atraumatic and Moist Mucous Membranes
Respiratory: Clear to Auscultation and Non Labored Respirations
Cardiac: Regular Rhythm and S1/S2; Negative Murmur or JVD
GI: Soft, Nontender, Nondistended and Normal Bowel Sounds
Musculoskeletal: No Clubbing, No Cyanosis and No Edema
Skin: Warm, Dry and Normal Turgor
Neuro: AO x 3, Nonfocal/Grossly Intact and Central Nerve's Intact
Psych: Calm
Data Reviewed
-
Labs: Labs Reviewed by me and Discussed with Patient
--- NOTE | 2024-05-07 09:06 | W.DCSUMMARY ---
Discharge Summary
Discharge Data
Date of Admission: 05/05/24
Date of Discharge: 05/07/24
-
Pending Results: No
Hospital Course
74-year-old female with no previous medical history on no standing medications that presented to the hospital with chest pain. Was noted to have recent nonspecific viral infection. Initial concern for ACS, patient had LHC that showed
nonobstructive coronary artery disease but newly depressed systolic function. Subsequent TTE showed nonterritorial wall motion abnormalities consistent with viral myocarditis, reduced ejection fraction of 35%. Was titrated on the GDMT for HFrEF
with beta-sindy, ARB, MRA prior to discharge. Entresto and SGLT2 cost prohibitive. Was started on IV Lasix for short course and transition to oral Lasix 20 mg daily at discharge. Was euvolemic, hemodynamically stable at time of discharge. Will
follow-up with cardiology and primary care after discharge. Cardiology to arrange cardiac rehab. Will need repeat echocardiogram in 6 months to assess for recovered LVEF and potential consideration for ICD if persistent.
Discharge Plan
-
Patient Disposition: Home (Routine Discharge)
Discharge Diagnosis/Procedures: Acute heart failure
Probable viral myocarditis
Condition: Good
Diet: No added salt
Activity: As tolerated
Driving Restrictions: No driving for 24 hours
Bathing Restrictions: None
Blood Work: BMP in 7 days
Others Tests: None
Specialty Instructions: Weigh Daily- Call MD for wt gain/loss 3 lbs overnight/5 lbs in 1 week
Activity Restrictions/Additional Instructions:
After discharge from the hospital schedule follow-up appointment with your family doctor for routine posthospital visit. Referral for cardiology provided, please contact their office to schedule follow-up within 2 to 3 weeks after discharge from
the hospital.
Have BMP (labs) taken 1 week after discharge to recheck kidney function on new medications
Avoid excess salt intake, <4 g salt daily as goal
Instructions: *CBC Heart Failure Instructions
Referrals:
Ollie Franco MD [Active] - in two to three weeks
Evelyn Brandt DO [Family Provider] -
Additional Discharge Medication Instructions: Start metoprolol succinate 12.5 mg daily
Start spironolactone 12.5 mg daily
Start valsartan 40 mg day
Start Lasix (furosemide) 20 mg daily
Start rosuvastatin 20 mg daily
[Medication refills after 1 month will need to be ordered by your brake repairer railroad or family doctor]
Prescriptions:
New
spironolactone 25 mg Tablet
12.5 mg PO DAILY 30 Days Qty: 15 0RF
valsartan 40 mg Tablet
40 mg PO DAILY 30 Days Qty: 30 0RF
rosuvastatin 20 mg Tablet
20 mg PO QPM 30 Days Qty: 30 0RF
furosemide 20 mg Tablet
20 mg PO DAILY 30 Days Qty: 30 0RF
metoprolol succinate 25 mg Tablet Extended Release 24 Hr
12.5 mg PO DAILY 30 Days Qty: 15 0RF
Discharge Orders:
Discharge Patient (As Directed); Ordered 05/07/24
Ordered By: Charly Denis
Care Plan Goals
Care Plan Goals:
Problem: Readiness for enhanced knowledge related to diagnosis and treatment plan
Goal: Understand your diagnosis and treatment plan needs, including medications if applicable.
Instructions: Know your diagnosis, underlying causes and treatment plan options, including medications if applicable. Consult with your health care team to learn about your diagnosis and treatment plan, including medications if applicable.
Discharge Date and Time
Print Language: FRENCH
[2024-05-07 09:36] VITALS: BP 103/70
[2024-05-07] MEDS: TOPROL XL 12.5 MG PO (09:40)
--- NOTE | 2024-05-07 09:56 | PTCARENOTE ---
Pt's BP 97/68, Lasix, aldactone and valsartan not given, MD aware. BP rechecked, 103/70, I did instructional design specialist her Toprol . She denies any symptoms of low BP at this time.
--- NOTE | 2024-05-07 10:47 | PTCARENOTE ---
Pt ambulated in batres with her , several laps around the unit, yanet well, no SOB, no chest pain.
[2024-05-07] MEDS: LOW STRENGTH ASPIRIN 81 MG PO (11:06)
--- NOTE | 2024-05-07 11:06 | PTCARENOTE ---
Pt D/C instructions reviewed with her and her , they expressed understanding.
--- NOTE | 2024-05-08 11:12 | W.HF.CON ---
Heart Failure
- LV Function
Left ventricular function study result: LV Ejection fraction </= 35%
Ejection Fraction Percentage: 32
- ARNI
Patient already on ARNI: No
Heart Failure ARNI Contraindication: Patient Refusal
- ACEI/ARB
Patient already on ACEI/ARB: Yes
- Beta Jojo
Patient already on Evidence Based Beta Jojo: Yes
- Mineralocorticord Receptor Antagonist
Patient already on MRA: Yes
- SGLT-2 Inhibitor
Patient already on SGLT-2 Inhibitor: No
Heart Failure SGLT-2 Inhibitor Contraindication: Patient Refusal
- NYHA CHF Classification
NYHA CHF Classification Level: Class III - Symptoms w/ min exertion, interferes w/ nml daily activity
- ACC/AHA Stage
ACC/AHA Stage: Stage C: Symptomatic Heart Failure
== END 2024-05-07 11:34 | disposition home or self-care (01) | DRG 280 ==
LOC: IVU 11:13
PROVIDERS: Internal Medicine Cardiovascular Disease; Nurse Practitioner Family; ADMITTING PHYSICIAN Hospitalist; ATTENDING PHYSICIAN Internal Medicine; EMERGENCY PHYSICIAN Emergency Medicine; FAMILY PHYSICIAN Family Medicine
PROC: 4A023N7 Measurement of Cardiac Sampling and Pressure, Left Heart, Percutaneous Approach (ICD-10-PCS; 2024-05-05)
PROC: B2111ZZ Fluoroscopy of Multiple Coronary Arteries using Low Osmolar Contrast (ICD-10-PCS; 2024-05-05)
PROC: B2151ZZ Fluoroscopy of Left Heart using Low Osmolar Contrast (ICD-10-PCS; 2024-05-05)
DX: I50.21 Acute systolic (congestive) heart failure (principal); I40.0 Infective myocarditis; I21.A1 Myocardial infarction type 2; I42.8 Other cardiomyopathies; B97.89 Other viral agents as the cause of diseases classified elsewhere; I44.7 Left bundle-branch block, unspecified; I25.10 Atherosclerotic heart disease of native coronary artery without angina pectoris; N28.9 Disorder of kidney and ureter, unspecified; I72.8 Aneurysm of other specified arteries
CPT/HCPCS: 71046; 71275; 74178; 80048; 80053; 80061; 83036; 83735; 83880; 84100; 84484; 85025; 85027; 85379; 93005; 93306; 93458; 96374; 99291; C1769; C1894; Q9967

== ENCOUNTER → 2024-08-15 08:58 | Outpatient (REF) | payer MEDICARE, OTHER, SELFPAY | LOC: RCS 08:58 | PROVIDERS: ATTENDING PHYSICIAN Internal Medicine Cardiovascular Disease; FAMILY PHYSICIAN Family Medicine | DX: I42.0 Dilated cardiomyopathy (principal); I49.3 Ventricular premature depolarization; I50.20 Unspecified systolic (congestive) heart failure | CPT/HCPCS: 93308; 93321; 93325 ==

== ENCOUNTER → 2024-08-28 17:32 | Outpatient (REF) | payer MEDICARE, OTHER, SELFPAY | LOC: MRI 3T 17:32 | PROVIDERS: ATTENDING PHYSICIAN Family Medicine | DX: N28.9 Disorder of kidney and ureter, unspecified (principal); K86.9 Disease of pancreas, unspecified | CPT/HCPCS: 74183; A9585 ==

== ENCOUNTER → 2024-12-10 08:06 | Outpatient (REF) | payer MEDICARE, OTHER, SELFPAY | LOC: PAVMRI 08:06 | PROVIDERS: ATTENDING PHYSICIAN Internal Medicine Cardiovascular Disease | DX: I49.3 Ventricular premature depolarization (principal) | CPT/HCPCS: 75561; 75565; A9585 ==

== ENCOUNTER → 2025-01-02 09:18 | Outpatient (REF) | payer MEDICARE, OTHER, SELFPAY ==
[2025-01-02 10:06] LABS: INR 0.93; PT 13.0 Sec (11.4-14.6)
[2025-01-02 10:15] LABS: Hematocrit 43.8 % (37.0-47.0); Hemoglobin 14.8 g/dL (12.0-16.0); Mean Corp Hgb Conc. 33.8 g/dL (33.0-37.0); Mean Corpuscular Volume 90.9 fL (81.0-99.0); Nucleated Red Blood Cells % 0 %; Platelet Count 193 10^3/uL (130-400); Red Cell Dist. Width 11.9 % (11.5-14.5)
[2025-01-02 10:24] LABS: ALT (SGPT) 27 U/L (0-35); AST (SGOT) 33 U/L (14-36); Albumin 5.2 g/dl (3.5-5.0); Alkaline Phosphatase 93 U/L (38-126); Blood Urea Nitrogen 27 mg/dl (7-17); Calcium 10.4 mg/dl (8.4-10.2); Carbon Dioxide 31 mmol/L (22-30); Chloride 101 mmol/L (98-107); Glucose 90 mg/dl (70-99); Magnesium 2.2 mg/dl (1.6-2.3); Potassium 4.2 mmol/L (3.5-5.1); Sodium 140 mmol/L (135-145); Total Protein 8.7 g/dl (6.3-8.2); eGFR > 60.00
== END ==
LOC: SDSPAT 09:18
PROVIDERS: ATTENDING PHYSICIAN Internal Medicine Cardiovascular Disease; FAMILY PHYSICIAN Family Medicine; REFERRING PHYSICIAN Internal Medicine Cardiovascular Disease
DX: R07.9 Chest pain, unspecified (principal)
CPT/HCPCS: 36415; 80053; 83735; 85025; 85610; 86850; 86900; 86901; 93005

== ENCOUNTER 2025-01-16 14:18 | Inpatient (IN) | payer MEDICARE, OTHER, SELFPAY ==
[2025-01-02 09:34] VITALS: BMI 22.4
[2025-01-16] VITALS (12 sets, daily range): BP systolic 76–148; BP diastolic 43–99; BMI 22.4
[2025-01-16] MEDS: TYLENOL 650 MG PO ×2 (15:32→19:51)
--- NOTE | 2025-01-16 15:32 | ITS.CL.ICD ---
De Alcholizer - ICD
Implantable Cardioverter Defibrillator
Procedure Report:
Date of Procedure: January 16, 2025
Patient : 1950
Procedures: BI V ICD implantation
Indication: 1) Class III CHF, LVEF 25-30% 2) Left Bundle Branch Block, QRS 177mse 4) Primary prevention ICD but has NSVT 192bpm
Implants:
Pulse Generator: Medtronic; Model# [id number]; Serial#[id number]
Atrial Lead: Medtronic: Model# [id number]; Serial# [id number]
Right Ventricular Lead: Medtronic; Model# 6935; Serial#[id number]
Left Ventricular Lead: Medtronic; Model# 4798; Serial# [id number]
Technique: The patient was prepped and draped in the usual fashion. Local anesthetic was applied to the left prepectoral subcutaneous tissue. A 4 inch incision was made. The left axillary vein was accessed��without difficulty. A subcutaneous pocket
was CREATED. Hemostasis was excellent. The leads were introduced with hemostatic peel away introducer sheaths. The right ventricular lead was placed at the right ventricular apex. The atrial lead was placed in the right atrial appendage. The
coronary sinus was accessed with the aid of the Attain system. The left ventricular lead was placed in the high lateral branch. 10 volt pacing did not capture the diaphragm. The leads were secured to the pectoralis muscle and fascia. The leads were
appropriately attached to the device. The pocket was irrigated with antibiotic solution. The device and leads were placed in the pocket and the device was secured to pectoralis muscle and facia. The incision was closed with absorbable sutures. The
estimated blood loss was minimal. There were no complications. Device based testing was performed as described below. IV contrast total: 10 cc.
System Analysis:
RA lead: P: 1.2 mV; Threshold: 0.5 V @ 0.5 ms; Impedance: 550 ohms.
RV lead: R: 11 mV; Threshold: 0.6 V @ 0.5 ms; Impedance: 560 ohms.
LV lead: R: 5 mV; Threshold: 1.5 V @ 0.5 ms; Impedance: 380 ohms.
Final Programming: Tachy: VT/VF:188; Bob: DDDR 60-120.
Conclusion: Biventricular ICD implant and testing.
Recommendation: Routine BiV ICD care. Will increase metoprolol to 25 mg XL p.o. nightly in addition to guideline based medical therapy and continue low-dose Lasix 20 mg daily. Outpatient echocardiogram in 3 months. We can follow the patient's
percentage of BiV pacing to assess PVC burden. If she remains with a PVC burden above 10 to 15% can consider PVC ablation. She has a right Para-Hisian PVC and with her wide left bundle at baseline it is likely she will be rendered pacemaker
dependent post ablation.
cc: Dr. Charly Keys
--- NOTE | 2025-01-16 16:11 | PTCARENOTE ---
Patient received from recovery. AO x3. Tylenol given for 6 out 10 left shoulder. EKG completed. V-paced HR 81. Left arm Immobilizer, Aquacel dressing dry and intact. Oriented to room and call hernandez placed in reach
[2025-01-16] MEDS: CRESTOR 20 MG PO (18:07)
[2025-01-16] MEDS: OSCAL CAL 500 500 MG PO (19:51)
[2025-01-16] MEDS: MELATONIN 10 MG PO (22:18)
[2025-01-16] MEDS: DIOVAN 40 MG PO (22:18)
[2025-01-16] MEDS: ANCEF 5 IV (22:18)
[2025-01-16] MEDS: TOPROL XL 25 MG PO (22:18)
--- NOTE | 2025-01-16 23:31 | PTCARENOTE ---
Pt. mostly V-paced with NSR, PVC, & BBC on the monitor. Other vitals stable. Left chest dressing CDI without drainage or hematoma, circulation intact to left arm; immobilizer on. Tylenol given for incisional pain with adequate results. Pt.
resting quietly.
[2025-01-17 03:13] VITALS: BP 119/54
[2025-01-17 03:59] LABS: Hematocrit 38.1 % (37.0-47.0); Hemoglobin 12.9 g/dL (12.0-16.0); Mean Corp Hgb Conc. 33.9 g/dL (33.0-37.0); Mean Corpuscular Volume 91.1 fL (81.0-99.0); Platelet Count 143 10^3/uL (130-400); Red Cell Dist. Width 12.1 % (11.5-14.5)
[2025-01-17 04:14] LABS: Blood Urea Nitrogen 28 mg/dl (7-17); Calcium 9.5 mg/dl (8.4-10.2); Carbon Dioxide 27 mmol/L (22-30); Chloride 105 mmol/L (98-107); Estimated Creatinine Clearance 60 ml/min; Glucose 107 mg/dl (70-99); Potassium 4.5 mmol/L (3.5-5.1); Sodium 137 mmol/L (135-145); eGFR > 60.00
[2025-01-17 04:33] VITALS: BMI 22.6
[2025-01-17] MEDS: ANCEF 5 IV (05:00)
[2025-01-17] MEDS: TYLENOL 650 MG PO ×2 (05:00→11:18)
--- NOTE | 2025-01-17 07:17 | W.PN.CARDCBS ---
Today's Communication / Plan
-
Home today
Increase Toprol
Follow pacing burden
Outpatient wound check 7 to 10 days
Tylenol for pain
Impression / Plan
-
Impression:
Nonischemic cardiomyopathy
Status post BiV ICD implant 01/16/2025
Dose-limiting hypotension
Parahisian PVC focus
Elevated PVC burden
Underlying left bundle branch block
Recommendations:
Sling x 24 hours
Chest x-ray and telemetry reviewed
Increase metoprolol to 25 mg daily and will increase further as an outpatient to improve her dosing on guideline based medical therapy
We will check her pacing burden which is a correlation to her PVC burden and if the PVC burden remains elevated will consider PVC ablation in 3 to 6 months
Outpatient wound check in 7 to 10 days
Outpatient echo in 3 months
Outpatient follow-up with me in 3 to 4 months after echo
Progress Note - Last Sawyer
Subjective
Date of Service: January 17, 2025
Feeling better today
Objective
Labs:
01/17/25 03:23
01/17/25 03:23
Labs
Hgb 12.9 g/dL (12.0-16.0) 01/17/25 03:23
Hct 38.1 % (37.0-47.0) 01/17/25 03:23
Plt Count 143 10^3/uL (130-400) 01/17/25 03:23
Sodium 137 mmol/L (135-145) 01/17/25 03:23
Potassium 4.5 mmol/L (3.5-5.1) 01/17/25 03:23
BUN 28 mg/dl (7-17) H 01/17/25 03:23
Creatinine 0.8 mg/dL (0.6-1.0) 01/17/25 03:23
Glucose 107 mg/dl (70-99) H 01/17/25 03:23
Vital Signs and I&O:
Vital Signs
Temp Pulse Resp BP Pulse Ox
98.3 F 68 18 119/54 97
01/17/25 03:13 01/17/25 04:00 01/17/25 03:13 01/17/25 03:13 01/17/25 03:13
Vital Signs
Temp Pulse Resp BP Pulse Ox
98.3 F 68 18 119/54 97
01/17/25 03:13 01/17/25 04:00 01/17/25 03:13 01/17/25 03:13 01/17/25 03:13
Intake & Output
01/15/25 01/16/25 01/17/25 01/18/25
06:59 06:59 06:59 06:59
Intake Total 480 / 480
Balance 480 / 480
Physical Exam
Physical Exam
����Physical Exam
���������������������General:��no apparent distress, not acutely ill
���������������������������Neck:��supple. no meningeal signs. normal psoterior pharynx
������������������������
���������������������������Heart:��s1/s2 regular rate and rhythm, no murmur. equal radial pulses.
��������������������������Lungs: ��no acute respiratory distress. clear bilaterally
����������������������Abdomen:�normal bowel sounds. not tender. no CVAT
��������������������������Neuro:��alert and oriented. no focal neurological deficits
������������������������������Skin: ��no rash
�����������������������Psychiatric:�well kept. interactive and cooperative
�����������������������Extremities:��no edema. no calf tenderness. negative homans. good distal pulses
BiV ICD site clean dry and intact
��
�
--- NOTE | 2025-01-17 07:19 | W.DS.TRANS ---
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
-
Discharge Instructions:
Sleep Apnea Risk Low
Discharge Diagnosis/Procedures BiV ICD implant
Diet Low Cholesterol,2 Gram Sodium
Driving Restrictions No driving for 1 week
Bathing Restrictions OK to Shower
Specialty Instructions Weigh Daily
Instructions:
Stand-Alone Forms: DC Inst - Implanted Device
Changes to Home Medications: No
Discharge Medications:
DC Medications w/original date entered in [facility]
furosemide 20 mg tablet 20 mg PO DAILY Heart Failure 1 month #30 tabs 05/07/24
rosuvastatin 20 mg tablet 20 mg PO QPM Heart disease/condition 1 month #30 tabs 05/07/24
spironolactone 25 mg tablet 12.5 mg (1/2 x 25 mg) PO DAILY Heart Failure 1 month #15 tabs 05/07/24
Defense Plus 1 dose PO DAILY 01/01/25
calcium 1 dose PO BID 01/01/25
melatonin 10 mg tablet 10 mg PO HS Sleep 01/01/25
pbflgewqhjms-nnzlkrwj-fuly fumarate 18 mg-folic acid 400 mcg tablet (One-A-Day Women's Complete) 1 tab PO DAILY 01/01/25
omeprazole 20 mg tablet,delayed release 20 mg PO DAILY PRN reflux, heartburn 01/01/25
aspirin 81 mg tablet,delayed release 81 mg PO DAILY 01/16/25
metoprolol succinate 25 mg tablet,extended release 24 hr 12.5 mg PO HS Heart Failure 01/16/25
metoprolol succinate 25 mg tablet,extended release 24 hr 25 mg PO HS 30 days #30 tabs 01/16/25
valsartan 40 mg tablet 40 mg PO HS Heart Failure 01/16/25
Home Medication Changes
We are increasing her Metoprolol to 25mg XL daily. Should take Metoprolol 25mg XL daily as the only dose of metoprolol daily
Pending Results: No
[2025-01-17 07:43] VITALS: BP 146/58
--- NOTE | 2025-01-17 09:03 | CM ---
Reviewed chart. Met with Mrs. Sepulveda to review discharge plans. She states prior to admission she resides with her spouse in a two story home with a full basement. She states she has two steps to enter. She states she has a full flight of steps
to get to her bedroom/full bathroom. She states she has a powder room on the first floor. She states prior to admission she was independent with ambulation and adls. She states she does not have any DME in the home. She states she has a
prescription plan and uses [facility]. Medical work-up in progress. The discharge plan is to return home with her spouse when medically stable.
[2025-01-17] MEDS: OSCAL CAL 500 500 MG PO (09:11)
[2025-01-17] MEDS: LASIX 20 MG PO (09:11)
[2025-01-17] MEDS: ALDACTONE 12.5 MG PO (09:11)
[2025-01-17] MEDS: ASPIR LOW (ENTERIC COATED) 81 MG PO (09:11)
[2025-01-17] MEDS: THERAGRAN 1 TABLET PO (09:11)
[2025-01-17 11:24] VITALS: BP 143/79
--- NOTE | 2025-01-17 12:00 | PTCARENOTE ---
Patient discharged to home. IV and telemetry removed. Verbal and written discharge teacxing provided, patient verbalized understanding. Patient assisted to main lobby in a wheelchair.
== END 2025-01-17 12:02 | disposition home or self-care (01) | DRG 277 ==
LOC: IVU 14:18
PROVIDERS: ADMITTING PHYSICIAN Internal Medicine Cardiovascular Disease; FAMILY PHYSICIAN Family Medicine
PROC: 02HL3KZ Insertion of Defibrillator Lead into Left Ventricle, Percutaneous Approach (ICD-10-PCS; 2025-01-16)
PROC: 02H63KZ Insertion of Defibrillator Lead into Right Atrium, Percutaneous Approach (ICD-10-PCS; 2025-01-16)
PROC: 02HK3KZ Insertion of Defibrillator Lead into Right Ventricle, Percutaneous Approach (ICD-10-PCS; 2025-01-16)
PROC: 0JH609Z Insertion of Cardiac Resynchronization Defibrillator Pulse Generator into Chest Subcutaneous Tissue and Fascia, Open Approach (ICD-10-PCS; 2025-01-16)
DX: I11.0 Hypertensive heart disease with heart failure (principal); I47.20 Ventricular tachycardia, unspecified; I50.22 Chronic systolic (congestive) heart failure; I42.0 Dilated cardiomyopathy; I44.7 Left bundle-branch block, unspecified; I95.9 Hypotension, unspecified; I49.3 Ventricular premature depolarization; I71.20 Thoracic aortic aneurysm, without rupture, unspecified; E78.5 Hyperlipidemia, unspecified; K21.9 Gastro-esophageal reflux disease without esophagitis; G47.00 Insomnia, unspecified; I35.1 Nonrheumatic aortic (valve) insufficiency; Z79.82 Long term (current) use of aspirin
CPT/HCPCS: 33225; 33249; 71045; 80048; 85027; 86900; 86901; 93005; C1769; C1777; C1882; C1887; C1892; C1898; C1900; Q9967